=== PATIENT | female | born 1985 | race Caucasian/White ===

== ENCOUNTER 2017-08-02 08:11 | Emergency (ER) | payer OTHER ==
--- NOTE | 2017-08-02 08:23 | ED Physician Documentation ---
Sore Throat/Dental Pain - HISTORIAN Historian: patient - HPI Chief Complaint: Dental Pain Additional Information: Patient states that she has been having some problems with right lower wisdom tooth for some time. Recently has been having some pain, can start to taste infection in the tooth. Does not have dental insurance and can not get in to see a dentist. Has called her regular primary care provider adn can not get her in to be seen until after [place]. Onset: other (2 weeks) Associated Symptoms: chills - ROS CONST: no problems LNMP: 07/16/17 - PAST HX Past History: none Allergies/Adverse Reactions: Allergies Allergy/AdvReac Type Severity Reaction Status Date / Time aspirin Allergy Verified 08/02/17 08:25 Home Medications: Ambulatory Orders Medication Instructions Recorded Clindamycin HCl [Cleocin] 300 mg PO QID #40 capsule 08/02/17 traMADol HCL [Ultram] 50 mg PO Q6H PRN #20 tablet 08/02/17 - SOCIAL HX Smoking History: less than 1 pack/day (3/4 ppd) Alcohol Use: none Drug Use: none - FAMILY HX Family History: Yes (DM) - VITAL SIGNS Vital Signs: Vital Signs Temp Pulse Resp BP Pulse Ox 122/72 05/14/16 14:04 - REVIEWED ASSESSMENTS Nursing Assessment Reviewed: Yes Vitals Reviewed: Yes Progress - Progress Progress: Script for clindamycin e scribed to [facility] [facility] for Ibuprofen 800mg TID #30 and Tramadol 50 mg q 6 PRN # 20 called in to [facility] [place] Dental Pain Physical Exam - EXAM General Appearance: alert, mild distress Head/Neck: head nml inspection, trachea midline, no lymphadenopathy, thyroid nml Mouth/Throat: lips nml, gums nml, pharynx nml, voice nml, no air way problems, dental tenderness (right lower molar), gum swelling around teeth. No: widespread dental decay Ear/Nose: nml inspection Respiratory: no resp. distress, breath sounds nml. No: wheezes, rales, rhonchi CVS: reg. rate & rhythm, heart sounds nml Abdomen: soft Skin: warm/dry Neuro/Psych: No: weakness Discharge Clincal Impression: Pain, dental Prescriptions: Clindamycin HCl [Cleocin] 300 mg PO QID #40 capsule traMADol HCL [Ultram] 50 mg PO Q6H PRN #20 tablet PRN Reason: Pain Referrals: BONITA YOUNG FNP [Primary Care Provider] - 2 Days Additional Instructions: Keep appointment with primary care provider. Try using [place]agel, salt water rinses. Take Ibuprofen on a regular basis with food and supplement with Tramadol as needed for pain. Take Clindamycin as directed. Condition: Stable Disposition: 01 HOME, SELF-CARE Decision to Admit: NO Date of Decison to Admit: 08/02/17 Decision Time: 08:42
[2017-08-02 08:27] VITALS: BP 135/81
== END 2017-08-02 08:51 | disposition home or self-care (01) ==
LOC: ED 08:11
DX: K08.89 Other specified disorders of teeth and supporting structures (principal)
CPT/HCPCS: 99283